=== PATIENT | male | born 1945 | race Caucasian/White ===

== ENCOUNTER 2024-04-20 07:46 | Emergency (ER) | payer MEDICARE, BC | END 2024-04-20 10:00 | disposition home or self-care (01) | LOC: CSHERS 07:46 | DX: M54.2 Cervicalgia (principal); I10 Essential (primary) hypertension; F17.210 Nicotine dependence, cigarettes, uncomplicated | CPT/HCPCS: 72040; 72125; 93005; 93010 ==

== ENCOUNTER 2024-04-24 07:06 | Emergency (ER) | payer MEDICARE, BC ==
[2024-04-24] MEDS ORDERED: diphenhydrAMINE 25 MG CAP ONE (07:48)
[2024-04-24] MEDS ORDERED: Famotidine 20 MG TAB ONE (07:48)
[2024-04-24] MEDS ORDERED: predniSONE 20 MG TAB ONE (07:49)
== END 2024-04-24 07:49 | disposition home or self-care (01) ==
LOC: CSHERS 07:06
DX: L50.9 Urticaria, unspecified (principal); I10 Essential (primary) hypertension; F17.210 Nicotine dependence, cigarettes, uncomplicated
CPT/HCPCS: 99282; J7512